=== PATIENT | female | born 1965 | race Caucasian/White ===

== ENCOUNTER 2025-05-16 17:04 | Emergency (ER) | payer OTHER, SELFPAY ==
[~2025-05-16 17:04] MED LIST: Iopamidol 300 61% 100 ML VIAL FS ONE
[2025-05-16] MEDS ORDERED: Acetaminophen 500 MG TAB ONE (18:35)
[2025-05-16] MEDS ORDERED: Boostrix 0.5 ML (Tdap) VIAL (>/=7 yrs of age) ONE (18:35)
[2025-05-16 18:53] LABS: Glucose, Urine (Dipstick) Normal (Negative); Leukocyte 25 (Negative); Protein, Urine (Dipstick) 30 mg/dl (Neg-Trace); Specific Gravity, Urine 1.010 (1.005-1.030)
[2025-05-16 19:01] LABS: #Basophils 0.08 10x3/uL (0.0-0.2); #Eosinophils 0.10 10x3/uL (0.0-0.5); #Monocytes 0.86 10x3/uL (0.0-1.1); #Neutrophils 4.17 10x3/uL (1.5-8.4); %Basophils 0.9 % (0.0-2.0); %Eosinophils 1.2 % (0.0-6.0); %Lymphocytes 39.7 % (18.0-47.0); %Monocytes 9.9 % (0.0-10.0); %Neutrophils 48.2 % (40.0-75.0); Hematocrit 38.9 % (34.9-44.5); Hemoglobin 12.4 g/dL (12.0-15.5); Mean Corpuscular Hemoglobin 29.3 pg (27.0-33.0); Mean Corpuscular Volume 92.0 fL (81.6-98.3); Platelet Count 339 10x3/uL (150-450); Red Blood Cell (RBC) Count 4.23 10x6/uL (3.90-5.03); White Blood Cell (WBC) Count 8.65 10x3/uL (3.5-10.5)
[2025-05-16 19:06] LABS: ALT (SGPT) 38 U/L (Less than 34); AST (SGOT) 34 U/L (11-34); Albumin 4.7 g/dL (3.1-4.5); Alkaline Phosphatase 72 U/L (40-110); Anion Gap 14 mmol/L (10-20); BUN (Urea Nitrogen) 17 mg/dL (9.8-20.1); Bilirubin, Total 0.9 mg/dL (0.3-1.2); Calc. Creatinine Clearance 0 mL/min (70-130); Calcium 10.1 mg/dL (7.8-10.44); Carbon Dioxide 26 mmol/L (23-31); Chloride 103 mmol/L (98-107); Globulin 3.1 g/dL (2.4-3.5); Glucose 98 mg/dL (80-115); Potassium 3.9 mmol/L (3.5-5.1); Sodium 139 mmol/L (136-145)
[2025-05-16 19:07] LABS: Bacteria/HPF 1+ HPF (None Seen); CAUTI Indications for Culture Alt mental st,lethar; RBC/HPF 0-3 HPF (0-3)
[2025-05-16 19:08] LABS: Mucous/LPF 1+ LPF (<2+)
[2025-05-16 19:09] LABS: Urine Culture Reflex No No
[2025-05-16 19:11] LABS: Troponin I Less than 0.010 ng/mL (< 0.028)
[2025-05-16 19:39] LABS: Acetaminophen Less than 10 mcg/mL (Less than 10); Salicylate Less than 8.0 mg/dL (Less than 8.0)
[2025-05-16 19:56] LABS: Cocaine Metabolite Screen Negative (Negative); THC/Cannabinoid Screen Negative (Negative); Tricyclic Screen Negative (Negative)
[2025-05-16] MEDS ORDERED: Ketorolac Tromethamine 30 MG (1 mL) VIAL ONE (20:22)
== END 2025-05-16 20:52 | disposition home or self-care (01) ==
LOC: CSHERS 17:04
DX: R52 Pain, unspecified (principal); N39.0 Urinary tract infection, site not specified; I10 Essential (primary) hypertension; W19.XXXA Unspecified fall, initial encounter
CPT/HCPCS: 70450; 71260; 72125; 74177; 80053; 80306; 80307; 81001; 84484; 85025; 90715; 93005; J1885; Q9967